=== PATIENT | male | born 1965 | race Caucasian/White ===

== ENCOUNTER → 2019-10-16 | Outpatient (CLI) | payer BC ==
--- NOTE | 2019-10-16 18:31 | Diagnostic Imaging Report ---
INDICATION: Hepatitis C, liver fibrosis. PROCEDURE: Ultrasound abdomen complete. TECHNIQUE: Multiple real-time grayscale images were obtained of the abdomen in various projections. COMPARISON: None available. FINDINGS: The liver has diffuse heterogeneous echogenicity. There is subtle nodularity along the liver surface. No focal hepatic mass is appreciated. The main portal vein is patent with normal direction of flow. The right, left, and middle hepatic veins are patent with normal direction of flow. Hepatic artery is patent with low resistant waveform measuring 40.4 cm/s. Cholecystectomy. Common bile duct is obscured. The visualized portions of the pancreas are normal. Portions of the head and tail are obscured by overlying bowel gas. The kidneys are normal in size. No hydronephrosis, shadowing calculi, or suspicious mass lesion. The spleen is normal in size measuring 12.3 cm and without focal lesion. Splenic vein has normal direction of flow. Splenic artery has a velocity of approximately 43 cm/s. The aorta and IVC are normal in caliber where seen. IMPRESSION: 1. Heterogeneous liver with suggestion of cirrhosis. 2. No features of portal hypertension. Dictated by: Dictated on workstation # [id number]
== END ==
LOC: RAD 09:25
PROVIDERS: ATTEND Nurse Practitioner Adult Health
DX: K74.0 Hepatic fibrosis (principal)
CPT/HCPCS: 76700